=== PATIENT | male | born 1990 | race Caucasian/White ===

== ENCOUNTER 2017-02-18 16:09 | Emergency (ER) | payer BC ==
[2017-02-18] MEDS ORDERED: NS 1,000 ML IV ONE (16:34)
--- NOTE | 2017-02-18 16:38 | EDPHY ---
H & P Stated Complaint: R chest pain, SOB. similar to prior PE Time Seen by Provider: 02/18/17 16:29 HPI/ROS: CHIEF COMPLAINT: Chest pain HISTORY OF PRESENT ILLNESS: The patient is a 27-year-old man who presents to the emergency department complaining of right-sided chest pain similar to a PE that he had August last year. That PE was provoked by excessive air travel. He has not been flying lately. He has not had fevers or cold symptoms. No GI symptoms. No diaphoresis. It is not worsened by position or exertion or deep inspiration. He was on Xarelto at the time but no longer is. He has not been traveling lately. REVIEW OF SYSTEMS: Constitutional: denies: chills, fever, recent illness, recent injury EENTM: denies: blurred vision, double vision, nose congestion Respiratory: denies: cough, shortness of breath Cardiac: denies: chest pain, irregular heart rate, lightheadedness, palpitations Gastrointestinal/Abdominal: denies: abdominal pain, diarrhea, nausea, vomiting, blood streaked stools Genitourinary: denies: dysuria, frequency, hematuria, pain Musculoskeletal: denies: joint pain, muscle pain Skin: denies: lesions, rash, jaundice, bruising Neurological: denies: headache, numbness, paresthesia, tingling, dizziness, weakness Hematologic/Lymphatic: denies: blood clots, easy bleeding, easy bruising Immunologic/allergic: denies: HIV/AIDS, transplant EXAM: GENERAL: Well-appearing, well-nourished and in no acute distress. HEAD: Atraumatic, normocephalic. EYES: Pupils equal round and reactive to light, extraocular movements intact, sclera anicteric, conjunctiva are normal. ENT: TMs normal, nares patent, oropharynx clear without exudates. Moist mucous membranes. NECK: Normal range of motion, supple without lymphadenopathy or JVD. LUNGS: Breath sounds clear to auscultation bilaterally and equal. No wheezes rales or rhonchi. HEART: Regular rate and rhythm without murmurs, rubs or gallops. ABDOMEN: Soft, nontender, normoactive bowel sounds. No guarding, no rebound. No masses appreciated. BACK: No CVA tenderness, no spinal tenderness, step-offs or deformities EXTREMITIES: Normal range of motion, no pitting or edema. No clubbing or cyanosis. NEUROLOGICAL: Cranial nerves II through XII grossly intact. Normal speech, normal gait. 5/5 strength, normal movement in all extremities, normal sensation PSYCH: Normal mood, normal affect. SKIN: Warm, dry, normal turgor, no visible rashes or lesions. Source: Patient Exam Limitations: No limitations - Personal History Current Tetanus/Diphtheria Vaccine: Unsure Current Tetanus Diphtheria and Acellular Pertussis (TDAP): Unsure - Medical/Surgical History Hx Asthma: No Hx Chronic Respiratory Disease: No Hx Diabetes: No Hx Cardiac Disease: No Hx Renal Disease: No Hx Cirrhosis: No Hx Alcoholism: No Hx HIV/AIDS: No Hx Splenectomy or Spleen Trauma: No Other PMH: PMH: COLITIS, PE. PSH: DENIES - Family History Significant Family History: No pertinent family hx - Social History Smoking Status: Never smoked Alcohol Use: Sober Drug Use: None Constitutional: Initial Vital Signs Temperature (C) 36.9 C 02/18/17 16:11 Heart Rate 77 02/18/17 16:11 Respiratory Rate 18 02/18/17 16:11 Blood Pressure 126/66 H 02/18/17 16:11 O2 Sat (%) 97 02/18/17 16:11 O2 Delivery Mode Room Air Allergies/Adverse Reactions: ibuprofen Allergy (Verified 09/23/16 20:58) Sulfa (Sulfonamide Antibiotics) Allergy (Verified 09/23/16 15:57) Home Medications: Medication Instructions Recorded Acetaminophen [Tylenol 325mg (*)] 325 mg PO DAILY PRN 09/23/16 Herbals/Supplements -Info Only 1 ea PO DAILY 09/23/16 Mesalamine [Canasa Suppository (*)] 1,000 mg PA HS PRN 09/23/16 Mesalamine [Lialda] 4.8 gm PO DAILY 09/23/16 Rivaroxaban [Xarelto 15mg (*)] 15 mg PO BIDMEAL #42 tab 09/24/16 Rivaroxaban [Xarelto] 20 mg PO DAILY #30 tab 09/24/16 Vsl#3 Cap (*) 02/18/17 Medical Decision Making - Diagnostics EKG Interpretation: An EKG obtained and was read and documented in trace view. Please see trace view for full reading and report. Sinus rhythm, mild diffuse ST elevation With some p.r.n. depression. Imaging: Results: CT scan of the chest angiogram was obtained. The results of the study are negative for PE, right lower lobe scarring consistent with previous PE. The study was read by Dr. Tse. I viewed the images myself on the PACS system. ED Course/Re-evaluation: 6:15 p.m. we discussed the CT results. The patient is reassured. He denies recent illness. He is currently asymptomatic. He declines further workup or testing at this time. We discussed indications for returning. Differential Diagnosis: Partial list of the Differential diagnosis considered include but were not limited to; PE, pleurisy, pneumonia and although unlikely based on the history and physical exam, I also considered acute coronary disease, dissection, pneumothorax, trauma. I discussed these differential diagnoses and the plan with the patient as well as the usual and expected course. The patient understands that the diagnosis is provisional and that in medicine we are not always correct and that further workup is often warranted. Usual and customary warnings were given. All of the patient's questions were answered. The patient was instructed to return to the emergency department should the symptoms at all worsen or return, otherwise to followup with the physician as we discussed. - Data Points Laboratory Results: Laboratory Results 02/18/17 16:25 02/18/17 16:25 Medications Given: Discontinued Medications Sodium Chloride (Ns) 1,000 mls @ 0 mls/hr IV ONCE ONE PRN Reason: Wide Open Stop: 02/18/17 16:35 Last Admin: 02/18/17 16:42 Dose: 1,000 mls Departure - Departure Disposition: Home, Routine, Self-Care Clinical Impression: Chest pain Qualifiers: Chest pain type: chest pain on breathing Qualified Code(s): R07.1 - Chest pain on breathing Condition: Fair Instructions: Chest Pain (ED) Referrals: Nelsy Ramsey PA [Primary Care Provider] - As per Instructions
--- NOTE | 2017-02-18 16:39 | CPEKG ---
Heart Rate: 67 RR Interval: 896 P-R Interval: 180 QRSD Interval: 94 QT Interval: 392 QTC Interval: 414 P Meridian: 36 QRS Meridian: 71 T Wave Meridian: 49 EKG Severity - OTHERWISE NORMAL ECG - EKG Impression: SINUS RHYTHM, MILD DIFFUSE ST ELEVATION IN AVR DEPRESSION Electronically Signed By: Cruzito Ziegler 18-Feb-2017 16:49:52
[2017-02-18 16:40] LABS: % IMMATURE GRANULYOCYTES 0.3 % (0.0-1.1); ABSOLUTE IMMATURE GRANULOCYTES 0.04 10^3/uL (0.00-0.10); ADD DIFF? NO; ADD MORPH? NO; ADD SCAN? NO; ATYPICAL LYMPHOCYTE FLAG 10 (0-99); FRAGMENT RBC FLAG 0 (0-99); HEMATOCRIT 47.7 % (40.0-51.0); HEMOGLOBIN 15.9 g/dL (13.7-17.5); LEFT SHIFT FLG 0 (0-99); LIPEMIA HEMOLYSIS FLAG 80 (0-99); MEAN CELL HEMOGLOBIN 28.9 pg (27.9-34.1); MEAN CELL HEMOGLOBIN CONCENTR. 33.3 g/dL (32.4-36.7); MEAN CELL VOLUME 86.6 fL (81.5-99.8); MEAN PLATELET VOLUME 9.9 fL (8.7-11.7); PLATELET CLUMPS FLAG 0 (0-99); PLATELET COUNT 364 10^3/uL (150-400); RED BLOOD CELL COUNT 5.51 10^6/uL (4.40-6.38); RED CELL DISTRIBUTION WIDTH 12.3 % (11.5-15.2)
[2017-02-18] MEDS ORDERED: IOPAMIDOL (ISOVUE 370) 100 ML BTL IV ONE (16:49)
[2017-02-18 16:52] LABS: ANION GAP 14 mEq/L (8-16); CARBON DIOXIDE 24 mEq/l (22-31); CHLORIDE 101 mEq/L (97-110); CREATININE 0.9 mg/dL (0.7-1.3); GLOMERULAR FILTRATION RATE > 60; GLUCOSE 86 mg/dL (70-100); POTASSIUM 3.8 mEq/L (3.5-5.2); SODIUM 139 mEq/L (134-144)
[2017-02-18 18:33] VITALS: BP 139/85; PULSE 78; RESP 14; TEMP 96.8; O2SAT 96
== END 2017-02-18 18:33 | disposition home or self-care (01) ==
DX: R07.1 Chest pain on breathing (principal)
CPT/HCPCS: Q9967